=== PATIENT | male | born 1995 | race Caucasian/White ===

== ENCOUNTER 2018-11-20 09:36 | Emergency (ER) | payer MEDICAID, OTHER ==
[~2018-11-20] VITALS: Ht 188 cm; Wt 98.5 kg
[2018-11-20 09:40] VITALS: BP 132/84
== END 2018-11-20 09:58 | disposition home or self-care (01) ==
LOC: ER 09:37
DX: F15.90 Other stimulant use, unspecified, uncomplicated (principal); Z02.89 Encounter for other administrative examinations
CPT/HCPCS: 99281

== ENCOUNTER 2019-05-29 22:35 | Emergency (ER) | payer MEDICAID, OTHER ==
[~2019-05-29] VITALS: Ht 188 cm; Wt 97.1 kg
[2019-05-29 22:38] VITALS: BP 142/89
== END 2019-05-30 00:48 | disposition left against medical advice (07) ==
LOC: ER 22:35
DX: S01.81XA Laceration without foreign body of other part of head, initial encounter (principal); S11.81XA Laceration without foreign body of other specified part of neck, initial encounter; Z53.21 Procedure and treatment not carried out due to patient leaving prior to being seen by health care provider; W18.39XA Other fall on same level, initial encounter; Y93.89 Activity, other specified; Y92.89 Other specified places as the place of occurrence of the external cause; Y99.8 Other external cause status